=== PATIENT | female | born 1930 | race Caucasian/White ===

== ENCOUNTER → 2019-03-15 | Outpatient (CLI) | payer OTHER ==
[~2019-03-15] MED LIST: ALBU3IS INH; ALBU90OI INH; AMIT10; AMIT25; AMLO5; AMLO5 PO; ASCO500; ASPI325 PO; ASPI325EC PO; ASPI81EC; ATEN25; ATOR20 PO; AZIT250 PO; CHOL10002; CITA20; CITA20 PO; CLON1 PO; CYCL10; CYCL10 PO; DIAZ5 PO; DULO30 PO; Diovan320 MG PO; ERGO50000 PO; ESTR.625; ESTR.625 PO; FLUSAL1005 IH; FLUSAL2505 IH; FURO20; FURO20 PO; FURO40 PO; GABA300 PO; HYDACE5; HYDACE5 PO; IBUP600 PO; IRON150C PO; IRON236 MG PO; LACT10SY PO; LISI5; LORA.5 PO; LORA1 PO; LOVA20; LOVAZA; METO25ER; OMEG1CAP30 PO; OSEL75CA PO; OXYACE5T PO; OXYB5 PO; OXYC10ER PO; OXYC10TA19 PO; OXYC5; POTCHL20ER; PRED10 PO; Percocet 5-3251 EACH PO; Prednisone20 MG PO; QUIN200; SENN187 PO; SENNA PLUS; SIMV10 PO; SPACER IH; STOMUL; STOMUL PO; TOCO400; TRAM50 PO; VALS80 PO; [UNRECOGNIZED DRUG - CODE]; [UNRECOGNIZED DRUG - CODE] PO
[2019-03-16 15:08] LABS: HPV 16 Negative (Negative); HPV 18 Negative (Negative); HPV OTHER HR TYPES Negative (Negative)
== END | disposition home or self-care (01) ==
LOC: LAB 12:12 → LAB SHORT 12:12
PROVIDERS: Nurse Practitioner Women's Health
DX: Z12.72 Encounter for screening for malignant neoplasm of vagina (principal); Z91.89 Other specified personal risk factors, not elsewhere classified
CPT/HCPCS: 87624; G0123